=== PATIENT | male | born 1965 ===

== ENCOUNTER 2019-10-17 15:21 | Emergency (ER) | payer SELFPAY ==
[~2019-10-17] VITALS: Ht 170.2 cm; Wt 72.7 kg
[2019-10-17 15:22] VITALS: Ht 170.2 cm; Wt 72.7 kg
[2019-10-17 16:05] LABS: ANION GAP 24.6 mmol/L (8-16); CALCIUM 8.8 mg/dL (8.5-10.1); CREATININE - SERUM 1.7 mg/dL (0.6-1.3); POTASSIUM - SERUM 4.6 mmol/L (3.5-5.1)
[2019-10-17 16:07] LABS: BASOPHILS 0.1 % (0-2); EOSINOPHILS 0 % (0-7); HEMATOCRIT 41.7 % (42.0-54.0); HEMOGLOBIN 13.4 g/dL (13.5-17.5); IMMATURE GRANULOCYTES 0.5 % (0-5); LYMPHOCYTES 6.2 % (15-50); MCH 27.3 pg (26.0-34.0); MCHC 32.1 g/dL (31.0-37.0); MCV 85.1 fL (80.0-100.0); MONOCYTES 11.5 % (2-11); NEUTROPHILS 81.7 % (40-80); PLATELET COUNT 385 10x3/uL (130-400); RDW 16.3 % (11.5-14.5); WBC 19.1 10x3/uL (4.8-10.8)
[2019-10-17 16:27] LABS: ALBUMIN 2.7 g/dL (3.4-5.0); BILIRUBIN - TOTAL 2.86 mg/dL (0.2-1.3); PROTEIN - SERUM 7.5 g/dL (6.4-8.2); TROPONIN-I 0.052 ng/mL (0.000-0.060)
[2019-10-17 16:29] LABS: APTT 31.5 SECONDS (22.8-39.4); INR 1.6 (0.85-1.17); PROTIME 18.9 SECONDS (11.6-15.0)
[2019-10-17 16:44] LABS: BILIRUBIN NEGATIVE (NEGATIVE); GLUCOSE NEGATIVE (NEGATIVE); KETONE NEGATIVE (NEGATIVE); NITRITE NEGATIVE (NEGATIVE); UROBILINOGEN NORMAL (NORMAL)
[2019-10-17 16:45] LABS: BACTERIA FEW /hpf (NEGATIVE); EPITHELIAL CELLS 0-5 /hpf (0-5); HYALINE CAST 0-5 /lpf (NONE SEEN); RED CELLS - URINE NONE SEEN /hpf (0-5); WHITE CELLS - URINE 0-5 /hpf (NEGATIVE)
[2019-10-18 02:32] VITALS: BP 168/116
== END 2019-10-18 02:32 | disposition other institution (70) ==
LOC: D.ER 15:21
PROVIDERS: Family Medicine
DX: A41.9 Sepsis, unspecified organism (principal); N17.9 Acute kidney failure, unspecified; E87.1 Hypo-osmolality and hyponatremia; E87.2 Acidosis; D72.829 Elevated white blood cell count, unspecified; K72.90 Hepatic failure, unspecified without coma; J90 Pleural effusion, not elsewhere classified; J18.9 Pneumonia, unspecified organism; Z20.828 Contact with and (suspected) exposure to other viral communicable diseases; I10 Essential (primary) hypertension; E11.9 Type 2 diabetes mellitus without complications; R11.2 Nausea with vomiting, unspecified; R10.9 Unspecified abdominal pain; Z91.19 Patient's noncompliance with other medical treatment and regimen